=== PATIENT | male | born 1980 | race Caucasian/White ===

== ENCOUNTER 2017-07-21 14:41 | Inpatient (IN) | payer MEDICAID, OTHER ==
[~2017-07-21] VITALS: Ht 177.8 cm; Wt 120.8 kg
[2017-07-21 15:52] LABS: Basophils # (auto) 0 uL; Basophils % (auto) 0.1 % (0.0-2.0); CONDITION Y; Eosinophils # (auto) 0 uL; Eosinophils % (auto) 0.1 % (0.0-7.0); Hematocrit 44.4 % (41.0-53.0); Hemoglobin 15.2 g/dL (13.5-17.5); Lymphocytes # (auto) 2.6 uL; Mean Corpuscular Hemoglobin 32.3 pg (28.0-32.0); Mean Corpuscular Hgb Conc. 34.2 g/dL (32.0-36.0); Mean Corpuscular Volume 94.4 fL (80.0-100.0); Mean Platelet Volume 8.1 fL (7.4-10.4); Monocytes # (auto) 0.6 uL; Monocytes % (auto) 4.2 % (0.0-12.0); Neutrophils # (auto) 12.1 uL; Neutrophils % (auto) 78.6 % (37.0-80.0); Platelet Count (auto) 227 10^3/uL (140-450); Red Cell Distribution Width 13.1 % (11.6-16.0); White Blood Cell 15.4 10^3/uL (4.4-10.8)
[2017-07-21 16:16] LABS: Albumin 3.7 g/dL (3.4-5.0); BUN/Creatinine Ratio 15.1; Bilirubin, Total 3.8 mg/dL (0.2-1.0); Calcium 9.2 mg/dL (8.5-10.1); Potassium 3.8 mmol/L (3.5-5.1); Total Protein 8.4 g/dL (6.4-8.2)
[2017-07-21 18:46] LABS: Amylase 29 U/L (25-115)
[2017-07-21] MEDS ORDERED: MORPHINE SULFATE 4 MG/ML SYRG IV ONE (19:00)
[2017-07-21] MEDS ORDERED: SODIUM CHLORIDE 0.9% 1,000 ML IV ONE (19:00)
[2017-07-21] MEDS ORDERED: PIPERACILLIN-TAZOB 3.375GM 100 ML IV ONE (19:00)
[2017-07-21] MEDS ORDERED: ONDANSETRON HCL 4 MG/2 ML VIAL IV ONE (19:00)
[2017-07-21 19:30] LABS: Urine Blood Negative /uL (Negative); Urine Color Brown (Yellow); Urine Glucose Normal (Normal); Urine Ketone Negative (Negative); Urine Mucus FEW (None Seen); Urine Nitrite Negative (Negative); Urine RBC 1 /hpf (0 - 3); Urine Urobilinogen >12.0 mg/dL (Negative); Urine pH 6.5 (5.0-8.0)
[2017-07-21 19:31] LABS: Urine Bilirubin POSITIVE (Negative)
[2017-07-21] MEDS ORDERED: NITROGLYCERIN 0.4 MG SL TAB SL PRN (19:45)
[2017-07-21] MEDS ORDERED: LORazepam 2MG/ML-1ML VIAL IV PRN ×2 (19:45→20:15)
[2017-07-21] MEDS ORDERED: MORPHINE SULF INJ 2 MG/ML SYRINGE 1ML IV PRN (19:45)
[2017-07-21] MEDS ORDERED: TEMAZEPAM 15 MG CAP PO PRN (19:45)
[2017-07-21] MEDS: FAMOTIDINE (10MG/ML) 2ML VL IV SCH (19:45)
[2017-07-21] MEDS ORDERED: MORPHINE SULFATE 4 MG/ML SYRG IV PRN (19:45)
[2017-07-21] MEDS: SODIUM CHLORIDE 0.9% 1,000 ML IV SCH (19:45)
[2017-07-21] MEDS ORDERED: cefTRIAXone 1GM/50ML D5W 50 ML IV ONE (19:45)
[2017-07-21 20:09] LABS: INR 0.95 (0.9-1.15); Partial Thromboplastin Time 28.9 sec (22.64-33.71); Prothrombin Time 10.4 sec (9.37-12.3)
[2017-07-21] MEDS ORDERED: THIAMINE HCL 100 MG/ML 2ML VIAL IV ONE (20:15)
[2017-07-21] MEDS ORDERED: chlordiazePOXIDE HCL 25 MG CAP PO PRN (20:15)
[2017-07-21 22:30] VITALS: BP 137/86
[2017-07-21] MEDS: metroNIDAZOLE 500MG/100ML 100 ML IV SCH (23:24)
[2017-07-21] MEDS: chlordiazePOXIDE HCL 5 MG CAP PO SCH (23:24)
[2017-07-22] VITALS (7 sets, daily range): BP systolic 116–152; BP diastolic 65–98
[2017-07-22] MEDS: SODIUM CHLORIDE 0.9% 1,000 ML IV SCH ×3 (03:45→21:35)
[2017-07-22] MEDS: metroNIDAZOLE 500MG/100ML 100 ML IV SCH ×4 (05:41→23:53)
[2017-07-22] MEDS: chlordiazePOXIDE HCL 5 MG CAP PO SCH ×4 (05:42→23:53)
[2017-07-22 05:56] LABS: Basophils # (auto) 0.1 uL; Basophils % (auto) 0.7 % (0.0-2.0); Eosinophils # (auto) 0 uL; Hematocrit 44.1 % (41.0-53.0); Hemoglobin 15.2 g/dL (13.5-17.5); Lymphocytes # (auto) 2.1 uL; Lymphocytes % (auto) 14.8 % (10.0-50.0); Mean Corpuscular Hemoglobin 32.8 pg (28.0-32.0); Mean Corpuscular Hgb Conc. 34.4 g/dL (32.0-36.0); Mean Corpuscular Volume 95.3 fL (80.0-100.0); Mean Platelet Volume 8.2 fL (7.4-10.4); Monocytes # (auto) 0.9 uL; Monocytes % (auto) 6.4 % (0.0-12.0); Neutrophils # (auto) 11.2 uL; Neutrophils % (auto) 78.1 % (37.0-80.0); Platelet Count (auto) 185 10^3/uL (140-450); White Blood Cell 14.3 10^3/uL (4.4-10.8)
[2017-07-22 06:22] LABS: Albumin 3.4 g/dL (3.4-5.0); BUN/Creatinine Ratio 13.8; Bilirubin, Total 4.4 mg/dL (0.2-1.0); Calcium 8.9 mg/dL (8.5-10.1); Potassium 3.7 mmol/L (3.5-5.1); Total Protein 8.3 g/dL (6.4-8.2)
[2017-07-22] MEDS: FAMOTIDINE (10MG/ML) 2ML VL IV SCH ×2 (06:47→20:09)
[2017-07-22] MEDS: cefTRIAXone 1GM/50ML D5W 50 ML IV SCH (08:37)
[2017-07-22] MEDS: MORPHINE SULF INJ 2 MG/ML SYRINGE 1ML IV PRN ×3 (08:45→13:36)
[2017-07-22] MEDS: ENOXAPARIN SOD 40 MG/0.4 ML SYRINGE SC SCH (09:24)
[2017-07-22] MEDS: THIAMINE HCL 100 MG/ML 2ML VIAL IV SCH (09:24)
[2017-07-23 05:38] VITALS: BP 132/74
[2017-07-23] MEDS: chlordiazePOXIDE HCL 5 MG CAP PO SCH ×3 (05:52→18:00)
[2017-07-23] MEDS: metroNIDAZOLE 500MG/100ML 100 ML IV SCH ×3 (05:52→18:05)
[2017-07-23] MEDS: SODIUM CHLORIDE 0.9% 1,000 ML IV SCH ×3 (06:58→21:06)
[2017-07-23] MEDS: FAMOTIDINE (10MG/ML) 2ML VL IV SCH ×2 (07:54→20:12)
[2017-07-23 08:20] VITALS: BP 131/73
[2017-07-23] MEDS: ENOXAPARIN SOD 40 MG/0.4 ML SYRINGE SC SCH (10:00)
[2017-07-23] MEDS: THIAMINE HCL 100 MG/ML 2ML VIAL IV SCH (10:50)
[2017-07-23] MEDS: cefTRIAXone 1GM/50ML D5W 50 ML IV SCH (10:51)
[2017-07-23 12:14] VITALS: BP 139/79
[2017-07-23 13:28] LABS: Basophils # (auto) 0.1 uL; Eosinophils # (auto) 0 uL; Eosinophils % (auto) 0.2 % (0.0-7.0); Hematocrit 39.8 % (41.0-53.0); Hemoglobin 13.8 g/dL (13.5-17.5); Lymphocytes # (auto) 2.1 uL; Lymphocytes % (auto) 18.5 % (10.0-50.0); Mean Corpuscular Hemoglobin 32.2 pg (28.0-32.0); Mean Corpuscular Hgb Conc. 34.6 g/dL (32.0-36.0); Mean Corpuscular Volume 93.1 fL (80.0-100.0); Mean Platelet Volume 7.8 fL (7.4-10.4); Monocytes # (auto) 0.9 uL; Monocytes % (auto) 7.9 % (0.0-12.0); Neutrophils # (auto) 8.2 uL; Neutrophils % (auto) 72.4 % (37.0-80.0); Platelet Count (auto) 189 10^3/uL (140-450); Red Cell Distribution Width 12.5 % (11.6-16.0); White Blood Cell 11.3 10^3/uL (4.4-10.8)
[2017-07-23 13:56] LABS: Albumin 3.2 g/dL (3.4-5.0); Calcium 8.9 mg/dL (8.5-10.1); Potassium 3.6 mmol/L (3.5-5.1)
[2017-07-23 13:58] LABS: BUN/Creatinine Ratio 11.8
[2017-07-23 14:00] LABS: Bilirubin, Total 2.8 mg/dL (0.2-1.0); Total Protein 7.8 g/dL (6.4-8.2)
[2017-07-23] MEDS: PROMETHAZINE HCL 25 MG/ML 1ML IV PRN (16:02)
[2017-07-23] MEDS: MORPHINE SULF INJ 2 MG/ML SYRINGE 1ML IV PRN (16:02)
[2017-07-23 16:33] VITALS: BP 135/73
[2017-07-23 22:05] VITALS: BP 131/88
[2017-07-24] MEDS: chlordiazePOXIDE HCL 5 MG CAP PO SCH ×4 (00:45→17:34)
[2017-07-24] MEDS: metroNIDAZOLE 500MG/100ML 100 ML IV SCH ×4 (00:45→17:34)
[2017-07-24] MEDS: SODIUM CHLORIDE 0.9% 1,000 ML IV SCH ×3 (03:50→20:00)
[2017-07-24 05:04] VITALS: BP 124/72
[2017-07-24] MEDS: FAMOTIDINE (10MG/ML) 2ML VL IV SCH ×2 (09:14→20:00)
[2017-07-24] MEDS: cefTRIAXone 1GM/50ML D5W 50 ML IV SCH (09:14)
[2017-07-24] MEDS: ENOXAPARIN SOD 40 MG/0.4 ML SYRINGE SC SCH (10:00)
[2017-07-24] MEDS: THIAMINE HCL 100 MG/ML 2ML VIAL IV SCH (11:48)
[2017-07-24 13:00] VITALS: BP 136/87
[2017-07-24 17:00] VITALS: BP 126/86
[2017-07-24 22:21] VITALS: BP 129/75
[2017-07-25] MEDS: chlordiazePOXIDE HCL 5 MG CAP PO SCH ×5 (00:46→23:45)
[2017-07-25] MEDS: metroNIDAZOLE 500MG/100ML 100 ML IV SCH ×5 (00:46→23:44)
[2017-07-25] MEDS: SODIUM CHLORIDE 0.9% 1,000 ML IV SCH ×3 (03:59→19:52)
[2017-07-25 05:00] VITALS: BP 131/74
[2017-07-25 05:49] LABS: Basophils # (auto) 0 uL; Basophils % (auto) 0.3 % (0.0-2.0); Eosinophils # (auto) 0.1 uL; Hematocrit 37.8 % (41.0-53.0); Hemoglobin 13.2 g/dL (13.5-17.5); Lymphocytes % (auto) 23.3 % (10.0-50.0); Mean Corpuscular Hemoglobin 32.7 pg (28.0-32.0); Mean Corpuscular Hgb Conc. 34.9 g/dL (32.0-36.0); Mean Corpuscular Volume 93.7 fL (80.0-100.0); Mean Platelet Volume 7.5 fL (7.4-10.4); Monocytes # (auto) 0.8 uL; Monocytes % (auto) 9.6 % (0.0-12.0); Neutrophils # (auto) 5.5 uL; Neutrophils % (auto) 65.8 % (37.0-80.0); Platelet Count (auto) 200 10^3/uL (140-450); Red Cell Distribution Width 12.6 % (11.6-16.0); White Blood Cell 8.4 10^3/uL (4.4-10.8)
[2017-07-25 06:00] LABS: INR 1.15 (0.9-1.15); Prothrombin Time 12.5 sec (9.37-12.3)
[2017-07-25 06:25] LABS: Albumin 2.9 g/dL (3.4-5.0); BUN/Creatinine Ratio 9.1; Bilirubin, Total 1.5 mg/dL (0.2-1.0); Calcium 8.7 mg/dL (8.5-10.1); Potassium 3.4 mmol/L (3.5-5.1)
[2017-07-25] MEDS ORDERED: fentaNYL CITRATE 100 MCG/2 ML VL ONE (06:56)
[2017-07-25] MEDS ORDERED: NALOXONE HCL 0.4 MG/ML VIAL ONE (06:57)
[2017-07-25] MEDS ORDERED: GLYCOPYRROLATE 0.2 MG/ML 1ML VIAL ONE (06:57)
[2017-07-25] MEDS ORDERED: SODIUM CHLORIDE LOCK 20 ML ONE (06:57)
[2017-07-25] MEDS ORDERED: PROPOFOL 10 MG/ML 20 ML IV ONE ×3 (06:57→08:49)
[2017-07-25] MEDS ORDERED: ROCURONIUM 10MG/ML 10ML VIAL IV ONE (06:57)
[2017-07-25] MEDS ORDERED: MEPERIDINE HCL (50 MG/ML) 1 ML VIAL ONE (06:57)
[2017-07-25] MEDS ORDERED: ONDANSETRON HCL 4 MG/2 ML VIAL ONE (06:57)
[2017-07-25] MEDS ORDERED: MIDAZOLAM HCL 1MG/1ML-2 ML VIAL ONE (06:57)
[2017-07-25] MEDS: FAMOTIDINE (10MG/ML) 2ML VL IV SCH ×2 (07:45→19:52)
[2017-07-25] MEDS ORDERED: METOCLOPRAMIDE HCL 5MG/ml INJ 2ml VIAL IV ONE (08:00)
[2017-07-25] MEDS ORDERED: HYDROmorphone HCL 2 MG/ML VL IV PRN (08:00)
[2017-07-25] MEDS ORDERED: KETOROLAC TROMETH 30 MG/ML 1ML VIAL IV ONE (08:00)
[2017-07-25] MEDS ORDERED: KETOROLAC TROMETH 60MG/2ML VIAL IM ONE (08:34)
[2017-07-25] MEDS: cefTRIAXone 1GM/50ML D5W 50 ML IV SCH (09:00)
[2017-07-25] MEDS: THIAMINE HCL 100 MG/ML 2ML VIAL IV SCH (10:00)
[2017-07-25] MEDS: ENOXAPARIN SOD 40 MG/0.4 ML SYRINGE SC SCH (10:00)
[2017-07-25 12:00] VITALS: BP 125/8
[2017-07-25 17:00] VITALS: BP 128/76
[2017-07-25] MEDS: HYDROcodone-ACET 5/325MG TAB PO PRN (20:44)
[2017-07-25 22:00] VITALS: BP 131/74
[2017-07-26] MEDS: SODIUM CHLORIDE 0.9% 1,000 ML IV SCH ×3 (03:51→16:42)
[2017-07-26] MEDS: HYDROcodone-ACET 5/325MG TAB PO PRN (04:27)
[2017-07-26 06:04] VITALS: BP 122/79
[2017-07-26] MEDS: chlordiazePOXIDE HCL 5 MG CAP PO SCH ×4 (06:30→17:21)
[2017-07-26] MEDS: metroNIDAZOLE 500MG/100ML 100 ML IV SCH ×3 (06:31→18:15)
[2017-07-26] MEDS: FAMOTIDINE (10MG/ML) 2ML VL IV SCH ×2 (06:58→19:58)
[2017-07-26 08:00] VITALS: BP 116/75
[2017-07-26 08:17] VITALS: BP 116/75
[2017-07-26] MEDS: ENOXAPARIN SOD 40 MG/0.4 ML SYRINGE SC SCH (10:00)
[2017-07-26] MEDS: cefTRIAXone 1GM/50ML D5W 50 ML IV SCH (11:22)
[2017-07-26] MEDS: THIAMINE HCL 100 MG/ML 2ML VIAL IV SCH (11:24)
[2017-07-26 17:42] VITALS: BP 122/67
[2017-07-26] MEDS: MORPHINE SULF INJ 2 MG/ML SYRINGE 1ML IV PRN (18:15)
[2017-07-27] MEDS: metroNIDAZOLE 500MG/100ML 100 ML IV SCH ×5 (00:06→23:56)
[2017-07-27] MEDS: SODIUM CHLORIDE 0.9% 1,000 ML IV SCH ×3 (04:22→20:07)
[2017-07-27] MEDS: MORPHINE SULF INJ 2 MG/ML SYRINGE 1ML IV PRN ×3 (04:23→18:50)
[2017-07-27] MEDS: chlordiazePOXIDE HCL 5 MG CAP PO SCH ×5 (04:34→23:56)
[2017-07-27 05:08] VITALS: BP 131/75
[2017-07-27 08:00] VITALS: BP 124/70
[2017-07-27] MEDS: cefTRIAXone 1GM/50ML D5W 50 ML IV SCH (10:35)
[2017-07-27] MEDS: FAMOTIDINE (10MG/ML) 2ML VL IV SCH ×2 (10:35→20:08)
[2017-07-27] MEDS: THIAMINE HCL 100 MG/ML 2ML VIAL IV SCH (10:37)
[2017-07-27] MEDS: ENOXAPARIN SOD 40 MG/0.4 ML SYRINGE SC SCH (10:39)
[2017-07-27 13:00] VITALS: BP 126/88
[2017-07-27] MEDS: HYDROcodone-ACET 5/325MG TAB PO PRN ×2 (13:48→22:37)
[2017-07-27 17:00] VITALS: BP 116/80
[2017-07-27 22:00] VITALS: BP 125/82
[2017-07-28] MEDS: SODIUM CHLORIDE 0.9% 1,000 ML IV SCH ×2 (04:16→11:45)
[2017-07-28] MEDS: chlordiazePOXIDE HCL 5 MG CAP PO SCH ×2 (04:16→12:00)
[2017-07-28] MEDS: HYDROcodone-ACET 5/325MG TAB PO PRN ×2 (04:18→17:27)
[2017-07-28 05:00] VITALS: BP 139/80
[2017-07-28] MEDS: metroNIDAZOLE 500MG/100ML 100 ML IV SCH ×2 (06:58→12:40)
[2017-07-28] MEDS: PROMETHAZINE HCL 25 MG/ML 1ML IV PRN (06:59)
[2017-07-28 09:15] VITALS: BP 119/85
[2017-07-28] MEDS: ENOXAPARIN SOD 40 MG/0.4 ML SYRINGE SC SCH (09:43)
[2017-07-28] MEDS: THIAMINE HCL 100 MG/ML 2ML VIAL IV SCH (09:43)
[2017-07-28] MEDS: FAMOTIDINE (10MG/ML) 2ML VL IV SCH (09:43)
[2017-07-28] MEDS: cefTRIAXone 1GM/50ML D5W 50 ML IV SCH (09:44)
[2017-07-28] MEDS: MORPHINE SULF INJ 2 MG/ML SYRINGE 1ML IV PRN (11:43)
[2017-07-28 13:00] VITALS: BP 121/81
[2017-07-28 17:16] VITALS: BP 111/74
== END 2017-07-28 20:40 | disposition home or self-care (01) | DRG 263 ==
LOC: ER 14:44 → TELE 14:45 → EAST 22:15 → UNDODISIN 07-26 13:40 → EAST 07-26 15:47
PROVIDERS: ADMIT Internal Medicine; ATTEND Internal Medicine
PROC: 0FT44ZZ Resection of Gallbladder, Percutaneous Endoscopic Approach (ICD-10-PCS; principal; 2017-07-25 08:09)
DX: K80.12 Calculus of gallbladder with acute and chronic cholecystitis without obstruction (principal); K70.10 Alcoholic hepatitis without ascites; R16.0 Hepatomegaly, not elsewhere classified; E66.9 Obesity, unspecified; Z83.3 Family history of diabetes mellitus; Z68.38 Body mass index [BMI] 38.0-38.9, adult
CPT/HCPCS: 36415; 71020; 74176; 76705; 80053; 81001; 82150; 82247; 83690; 85025; 85610; 85730; 86850; 86900; 86901; 87040; 87081; 96374; 96375; 99291; J0696; J1885; J2250; J2405; J2543; J2704; J3490

== ENCOUNTER 2017-11-07 22:52 | Emergency (ER) | payer MEDICAID ==
[~2017-11-07] VITALS: Ht 177.8 cm; Wt 106.6 kg
[2017-11-07 23:45] VITALS: BP 156/97
== END 2017-11-08 00:50 | disposition left against medical advice (07) ==
LOC: ER 22:53
DX: M79.89 Other specified soft tissue disorders (principal); Z48.01 Encounter for change or removal of surgical wound dressing; Z53.21 Procedure and treatment not carried out due to patient leaving prior to being seen by health care provider
CPT/HCPCS: 74176

== ENCOUNTER 2017-12-05 10:40 | Emergency (ER) | payer MEDICAID ==
[~2017-12-05] VITALS: Ht 177.8 cm; Wt 102.1 kg
[2017-12-05 13:25] VITALS: BP 122/62
== END 2017-12-05 14:03 | disposition home or self-care (01) ==
LOC: ER 10:40
DX: K43.9 Ventral hernia without obstruction or gangrene (principal); F12.10 Cannabis abuse, uncomplicated; Z90.49 Acquired absence of other specified parts of digestive tract

== ENCOUNTER 2018-01-16 08:17 | Emergency (ER) | payer MEDICAID ==
[~2018-01-16] VITALS: Ht 177.8 cm; Wt 102.1 kg
[2018-01-16 09:04] LABS: Basophils # (auto) 0 uL; Basophils % (auto) 0.4 % (0.0-2.0); Eosinophils # (auto) 0 uL; Eosinophils % (auto) 0.5 % (0.0-7.0); Hematocrit 42.7 % (41.0-53.0); Hemoglobin 14.6 g/dL (13.5-17.5); Lymphocytes # (auto) 2.2 uL; Lymphocytes % (auto) 29.4 % (10.0-50.0); Mean Corpuscular Hgb Conc. 34.3 g/dL (32.0-36.0); Mean Corpuscular Volume 90.5 fL (80.0-100.0); Monocytes # (auto) 0.4 uL; Monocytes % (auto) 4.7 % (0.0-12.0); Neutrophils # (auto) 4.9 uL; Nucleated Red Blood Cells % 0.1 %; Platelet Count (auto) 190 10^3/uL (140-450); Red Blood Cells 4.72 10^6/uL (4.5-5.90); Red Cell Distribution Width 13.1 % (11.8-14.3); White Blood Cell 7.6 10^3/uL (4.4-10.8)
[2018-01-16 09:07] LABS: BUN/Creatinine Ratio 9.3; Calcium 9.2 mg/dL (8.5-10.1); Potassium 3.7 mmol/L (3.5-5.1)
[2018-01-16 09:17] LABS: Bilirubin, Total 1.2 mg/dL (0.2-1.0); Total Protein 8.8 g/dL (6.4-8.2)
[2018-01-16 11:45] VITALS: BP 131/84
== END 2018-01-16 11:44 | disposition home or self-care (01) ==
LOC: ER 08:17
DX: K46.9 Unspecified abdominal hernia without obstruction or gangrene (principal); F12.10 Cannabis abuse, uncomplicated
CPT/HCPCS: 36415; 74176; 80053; 85025